=== PATIENT | female | born 1965 | race African-American/Black ===

== ENCOUNTER 2021-07-25 05:45 | Emergency (ER) | payer MEDICAID, OTHER ==
[~2021-07-25] VITALS: Ht 167.6 cm; Wt 68.0 kg
[2021-07-25 05:57] VITALS: BP 118/72
[2021-07-25] MEDS ORDERED: LIDOCAINE 5% PATCH TOP SCH (06:30)
[2021-07-25] MEDS ORDERED: HYDROCODONE/ACETAMINOPHEN 5/325MG TABLET PO ONE (06:30)
== END 2021-07-25 07:16 | disposition left against medical advice (07) ==
LOC: ER 05:45
DX: M54.9 Dorsalgia, unspecified (principal); G89.29 Other chronic pain; M62.830 Muscle spasm of back; I10 Essential (primary) hypertension; G43.909 Migraine, unspecified, not intractable, without status migrainosus; Z86.73 Personal history of transient ischemic attack (TIA), and cerebral infarction without residual deficits
CPT/HCPCS: 99281

== ENCOUNTER 2021-08-22 06:22 | Emergency (ER) | payer OTHER ==
[~2021-08-22] VITALS: Ht 167.6 cm; Wt 82.0 kg
[2021-08-22] MEDS ORDERED: OXYCODONE HCL/ACETAMINOPHEN 5/325MG TABLET PO ONE (07:00)
[2021-08-22 09:05] VITALS: BP 148/89
[2021-08-22] MEDS ORDERED: OXYC-100 PO (09:38)
== END 2021-08-22 11:22 | disposition home or self-care (01) ==
LOC: ER 06:22
DX: M54.9 Dorsalgia, unspecified (principal); I10 Essential (primary) hypertension; G43.909 Migraine, unspecified, not intractable, without status migrainosus; Z86.73 Personal history of transient ischemic attack (TIA), and cerebral infarction without residual deficits
CPT/HCPCS: 72100; 99283

== ENCOUNTER 2021-08-22 11:23 | Emergency (ER) | payer OTHER ==
[~2021-08-22 11:23] MED LIST: OXYC-100 PO
== END 2021-08-22 12:01 | disposition left against medical advice (07) ==
LOC: ER 11:23
DX: Z53.21 Procedure and treatment not carried out due to patient leaving prior to being seen by health care provider (principal); I10 Essential (primary) hypertension; Z86.73 Personal history of transient ischemic attack (TIA), and cerebral infarction without residual deficits